=== PATIENT | female | born 2000 | race Two or more races ===

== ENCOUNTER 2023-10-14 15:23 | Emergency (ER) | payer BC, SELFPAY ==
[2023-10-14 15:29] VITALS: BP 130/92; PULSE 100; RESP 18; TEMP 36.8; O2SAT 100
--- NOTE | 2023-10-14 15:35 | ED.SKABFB1 ---
HPI - Skin/Abscess/Foreign Bdy General Chief complaint: Skin/Abscess/Foreign Body Stated complaint: BACK PAIN Time Seen by Provider: 10/14/23 15:35 Source: patient Mode of arrival: walk-in Limitations: no limitations History of Present Illness HPI narrative: this patient's here with a tender area in her right sacral area. She's had an incision and drainage of a pilonidal cyst done at this institution previously. She then followed up with surgeon and it did get better but the surgeon ttold her if it becomes recurrent she would have to have it removed. Just in the last twenty-four hours or so she's noticed an increasing bump and tenderness in this area. She is not doing a sitz bath. She's not on any antibiotics. He denied diabetic. She is otherwise no complaints Related Data Home Medications Medication Instructions Recorded Confirmed No Known Home Medications 10/14/23 10/14/23 Allergies Allergy/AdvReac Type Severity Reaction Status Date / Time No Known Drug Allergies Allergy Verified 10/14/23 15:29 PFSH PFSH Social History Smoking status: Never smoker Exam Narrative Exam Narrative: patient is here with her mother. In the presence of a nurse we did examine her and she has a 1.5 x 0.5 cm fluctuant tender area exactly over the area where previous incision was in the right perianal area. There is no other surrounding tissue texture changes or evidence of expanding infection. I do recommend she has is open at this time. Constitutional Vital Signs, click to edit/add: Last Vital Signs Temp 98.2 F 10/14/23 15:29 Pulse 100 H 10/14/23 15:29 Resp 18 10/14/23 15:29 BP 130/92 H 10/14/23 15:29 Pulse Ox 100 10/14/23 15:29 O2 Del Method Room Air 10/14/23 15:29 Course Vital Signs Vital signs: Vital Signs Temperature 98.2 F 10/14/23 15:29 Pulse Rate 100 H 10/14/23 15:29 Respiratory Rate 18 10/14/23 15:29 Blood Pressure 130/92 H 10/14/23 15:29 Pulse Oximetry 100 10/14/23 15:29 Oxygen Delivery Method Room Air 10/14/23 15:29 Temperature 98.2 F 10/14/23 15:29 Pulse Rate 100 H 10/14/23 15:29 Respiratory Rate 18 10/14/23 15:29 Blood Pressure 130/92 H 10/14/23 15:29 Pulse Oximetry 100 10/14/23 15:29 Oxygen Delivery Method Room Air 10/14/23 15:29 MDM - Skin/Abscess/Foreign Bdy MDM Narrative Medical decision making narrative: after explaining the procedure we used lidocaine one percent with epinephrine to anesthetize the area of tenderness. The stellate incision was made one half centimeter by 1/2 cm. Small amount of purulent material was recovered, hemostats were used to break up other subcutaneous changes tissue. It was not felt to be a deep or expansive abscess at all. Dressings were applied and she'll be started on an antibiotic. We also want her to do frequent sitz baths. She already has a standing appointment to see her surgeon in two weeks to consider definitive removal of this problem Discharge Plan Discharge Chief Complaint: Skin/Abscess/Foreign Body Clinical Impression: Chronic recurrent pilonidal cyst Patient Disposition: Home, Self-Care Time of Disposition Decision: 16:11 Prescriptions / Home Meds: No Action No Known Home Medications Additional Instructions: Keflex/sitz baths/follow-up with her surgeon Stand Alone Forms: Portal Instructions Referrals: Davida Lowe NP [Primary Care Provider] - 1 week
== END 2023-10-14 16:16 | disposition home or self-care (01) ==
PROVIDERS: Emergency Provider Emergency Medicine Emergency Medical Services; PCP Nurse Practitioner
DX: L05.91 Pilonidal cyst without abscess (principal)
CPT/HCPCS: 10080; 99283

== ENCOUNTER 2023-10-26 22:36 | Emergency (ER) | payer BC, SELFPAY ==
[2023-10-26 22:43] VITALS: BP 139/96; PULSE 107; RESP 14; TEMP 36.8; O2SAT 96; BMI 33.7
--- OUTSIDE RECORDS SUMMARY | 2023-10-26 22:44 | XMS_ITS | CCD ---
Author Name Unknown Address [address] [place] [id number] Organization [facility] Care Team Providers Care Distribution Lead Name Role Phone REQUEST, DR NONE LISTED Primary Care Unavailkathleen HAN, DR MARTIN Araujo Admitting Unavailable GUILLE, DR MARTIN Araujo Attending Unavailable GUILLE, DR MARTIN Araujo Consulting Unavailable OSMANY COLON Consulting Unavailable AICHHOLZ, CUSTOMER SERVICE MANAGER TIANNA Admitting Unavailable AICHHOLZ, CUSTOMER SERVICE MANAGER TIANNA Attending Unavailable AICHHOLZ, CUSTOMER SERVICE MANAGER TIANNA Consulting Unavailable AICHHOLZ, CUSTOMER SERVICE MANAGER TIANNA Primary Care Unavailable REQUEST, DR NONE LISTED Primary Care Unavaila FADUMO Del Valle Admitting Unavailable PHOEBELILIA CARLOS Consulting Unavailable FADUMO RUIZ Attending Unavailable PAY ., DR PINEDA Admitting Unavailable REQUEST, NONE LISTED Primary Care Unavaila ble PAY ., DR PINEDA Attending Unavailable PAY ., DR PINEDA Consulting Unavailable No Pcp, No Pcp Primary Care Provider UnavailMARI Youngblood Attending Unavailable NO PCP, NO PCP Primary Care Unavailable MARI MOORE Referring Unavailable NO PCP, NO PCP Primary Care Unavailable MARI MOORE Referring Unavailable NO PCP, NO PCP Primary Care Unavailable Medications Current Medications Medication Drug Class(es) Dates Sig (Normalized) Sig (Original) cephalexin 500 mg oral capsule (1 source) Cephalosporin Antibacterial CEPHalexin (KEFLEX) 500 mg capsule Take 1 capsule (500 mg total) by mouth in the morning and 1 capsule (500 mg total) at noon and 1 capsule (500 mg total) in the evening and 1 capsule (500 mg total) before bedtime. Take 1 tablet 4 times a day by mouth for 5 days. 0 Active Completed/Discontinued Medications Medication Drug Class(es) Dates Sig (Normalized) Sig (Original) sulfamethoxazole 800 mg / trimethoprim 160 mg oral tablet (1 source) Dihydrofolate Reductase Inhibitor Antibacterial, Sulfonamide Antimicrobial Start: 01-25-2023 End: 10-16-2023 take 1 tablet by mouth every twelve hours sulfamethoxazole- trimethoprim (BACTRIM DS) 800-160 mg per tablet Take 1 tablet by mouth every 12 (twelve) hours. Take 1 tablet by mouth every 12 hours for 10 days 0 01/25/2023 10/16/2023 Discontinued (Therapy completed) Problems Active Problems Problem Classification Problem Date Documented Da te Episodic/Chronic Deficiency and other anemia (1 source) Iron deficiency anemia, unspecified; Translations: [IRON DEFICIENCY ANEMIA UNSPECIFIED] Onset: 02-13-2023 Episodic Headache; including migraine (1 source) Headache; including migraine; Translations: [HEADACHE UNSPECIFIED] Onset: 03-06-2022 Menstrual disorders (1 source) Dysmenorrhea; Translations: [Dysmenorrhea, unspecified] Onset: 07-01-2019 07-01-2019 Chronic Nutritional deficiencies (1 source) Vitamin D deficiency; Translations: [Vitamin D deficiency, unspecified] Onset: 07-01-2019 07-01-2019 Chronic Other skin disorders (1 source) Pilonidal disease; Translations: [Other specified disorders of the skin and subcutaneous tissue] 10-16-2023 Episodic Other skin disorders (2 sources) Other specified disorders of the skin and subcutaneous tissue; Translations: [Other specified disorders of the skin and subcutaneous tissue] Onset: 10-16-2023 Episodic Other upper respiratory disease (1 source) Allergic rhinitis; Translations: [Allergic rhinitis, unspecified] Onset: 07-01-2019 07-01-2019 Chronic Skin and subcutaneous tissue infections (6 sources) Pilonidal cyst without abscess; Translations: [Pilonidal cyst with abscess] Onset: 01-25-2023 Episodic Unclassified (3 sources) COUGH, UNSPECIFIED; Translations: [COUGH, UNSPECIFIED] Onset: 03-06-2022 Unclassified (1 source) Post-op Onset: 10-16-2023 Viral infection (1 source) COVID-19; Translations: [COVID-19] Onset: 03-06-2022 Past or Other Problems Problem Classification Problem Date Documented Da te Episodic/Chronic Lymphadenitis (1 source) Localized enlarged lymph nodes; Translations: [LOCALIZED ENLARGED LYMPH NODES] Onset: 06-05-2022 Episodic Mood disorders (1 source) Mood disorders Onset: 03-26-2019 03-26-2019 Other ear and sense organ disorders (3 sources) Otalgia, right ear; Translations: [OTALGIA RIGHT EAR] Onset: 06-04-2022 Episodic Other gastrointestinal disorders (1 source) Diarrhea, unspecified; Translations: [DIARRHEA UNSPECIFIED] Onset: 03-06-2022 Episodic Other skin disorders (1 source) Disorder of scalp; Translations: [Other skin changes] Onset: 07-01-2019 07-01-2019 Episodic Other skin disorders (1 source) Acne vulgaris; Translations: [Acne vulgaris] Onset: 07-01-2019 07-01-2019 Episodic Other skin disorders (1 source) Loss of hair; Translations: [Nonscarring hair loss, unspecified] Onset: 07-01-2019 07-01-2019 Episodic Other upper respiratory infections (1 source) Acute pharyngitis, unspecified; Translations: [ACUTE PHARYNGITIS UNSPECIFIED] Onset: 03-06-2022 Episodic Unclassified (1 source) COUGH, UNSPECIFIED; Translations: [COUGH, UNSPECIFIED] Onset: 03-02-2022 Results Test Name Value Interpretation Reference Range Facility COMPLETE BLOOD COUNTon 10-21 Erythrocyte distribution width (RBC) [Ratio] 12.9 % Normal 11.5-15.0 [facility] Comment on above: Performed By: #### C BC #### [facility] ([id number]) [address] [place] [address] Hematocrit (Bld) [Volume fraction] 41.9 % Normal 35-47 [facility] Comment on above: Performed By: #### C BC #### [facility] ([id number]) [address], [address] [place] [address] Hemoglobin (Bld) [Mass/Vol] 14.2 g/dL Normal 11.7-15.5 [facility] Comment on above: Performed By: #### C BC #### [facility] ([id number]) [address], [address] [place] [address] MCH (RBC) [Entitic mass] 30.5 pg Normal 27-34 [facility] Comment on above: Performed By: #### C BC #### [facility] ([id number]) [address], [address] [place] [address] MCHC (RBC) [Mass/Vol] 33.9 g/dL Normal 32-36 [facility] Comment on above: Performed By: #### C BC #### [facility] ([id number]) [address], [address] [place] [address] MCV (RBC) [Entitic vol] 90 fL Normal 80-100 [facility] Comment on above: Performed By: #### C BC #### [facility] ([id number]) [address], [address] [place] [address] Platelet mean volume (Bld) [Entitic vol] 7.6 fL Normal 7-12 [facility] Comment on above: Performed By: #### C BC #### [facility] ([id number]) [address], [address] [place] [address] Platelets (Bld) [#/Vol] 383 10*3/uL Normal 150-450 [facility] Comment on above: Performed By: #### C BC #### [facility] ([id number]) [address], [address] [place] [address] RBC COUNT 4.66 X10E12/L Normal 3.80-5.20 [facility] Comment on above: Performed By: #### C BC #### [facility] ([id number]) [address] [place] [address] WBC (Bld) [#/Vol] 7.9 10*3/uL Normal 4.0-11.0 [facility] Comment on above: Performed By: #### C BC #### [facility] ([id number]) [address], [address] [place] [address] CBC AUTO DIFFon 02-06-2023 BASO # 0.0 103/ul Normal 0.0-0.1 [facility] Comment on above: Performed By: #### C BC #### [facility] [address] [place] [address] Dr. Sin Maciel Basophils/100 WBC (Bld) 0.7 % Normal 0.2-2.0 [facility] Comment on above: Performed By: #### C BC #### [facility] [address] [place] [address] Dr. Sin Maciel EO # 0.2 103/ul Normal 0.0-0.7 [facility] Comment on above: Performed By: #### C BC #### [facility] [address] [place] [address] Dr. Sin Maciel Eosinophils/100 WBC (Bld) 2.7 % Normal 0.9-7.0 [facility] Comment on above: Performed By: #### C BC #### [facility] [address] [place] [address] Dr. Sin Maciel Erythrocyte distribution width (RBC) [Ratio] 12.3 % Normal 11.0-15.0 [facility] Comment on above: Performed By: #### C BC #### [facility] [address] [place] [address] Dr. Sin Maciel Hematocrit (Bld) [Volume fraction] 42.2 % Normal 36.0-48.0 [facility] Comment on above: Performed By: #### C BC #### [facility] [address] [place] [address] Dr. Sin Maciel Hemoglobin (Bld) [Mass/Vol] 14.2 g/dL Normal 12.0-16.0 [facility] Comment on above: Performed By: #### C BC #### [facility] [address] [place] [address] Dr. Sin Maciel IG # 0.01 10e3/ul Normal 0.00-0.03 [facility] Comment on above: Performed By: #### C BC #### [facility] [address] [place] [address] Dr. Sin Maciel IG % 0.2 % Normal 0.0-0.5 [facility] Comment on above: Performed By: #### C BC #### [facility] [address] [place] [address] Dr. Sin Maciel LYMPH # 1.9 103/ul Normal 1.2-3.8 [facility] Comment on above: Performed By: #### C BC #### [facility] [address] [place] [address] Dr. Sin Maciel Lymphocytes/100 WBC (Bld) 31.7 % Normal 20.5-60.0 [facility] Comment on above: Performed By: #### C BC #### [facility] [address] [place] [address] Dr. Sin Maciel MANUAL DIFF REQ NO Normal [facility] Comment on above: Performed By: #### C BC #### [facility] [address] [place] [address] Dr. Sin Maciel MCH (RBC) [Entitic mass] 30.1 pg Normal 26.7-34.0 [facility] Comment on above: Performed By: #### C BC #### [facility] [address] [place] [address] Dr. Sin Maciel MCHC (RBC) [Mass/Vol] 33.6 g/dL Normal 29.9-35.2 [facility] Comment on above: Performed By: #### C BC #### [facility] [address] [place] [address] Dr. Sin Maciel MCV (RBC) [Entitic vol] 89.4 fL Normal 81.0-99.0 [facility] Comment on above: Performed By: #### C BC #### [facility] [address] [place] [address] Dr. Sin Maciel MONO # 0.4 103/ul Normal 0.3-0.8 [facility] Comment on above: Performed By: #### C BC #### [facility] [address] [place] [address] Dr. Sin Maciel Monocytes/100 WBC (Bld) 6.8 % Normal 1.7-12.0 [facility] Comment on above: Performed By: #### C BC #### [facility] [address] [address] [address] Sin Maciel NEUT # 3.4 103/ul Normal 1.4-6.5 [facility] Comment on above: Performed By: #### C BC #### [facility] [address] [address] [address] Sin Maciel Neutrophils/100 WBC (Bld) 57.9 % Normal 43.0-75.0 [facility] Comment on above: Performed By: #### C BC #### [facility] [address] [place] [address] Dr. Sin Maciel Platelet mean volume (Bld) [Entitic vol] 8.7 fL Critically low 9.5-13.5 [facility] Comment on above: Performed By: #### C BC #### [facility] [address] [place] [address] Dr. Sin Maciel PLT 301 103/ul Normal 150-450 [facility] Comment on above: Performed By: #### C BC #### [facility] [address] [place] [address] Dr. Sin Maciel RBC 4.72 106/ul Normal 4.20-5.40 [facility] Comment on above: Performed By: #### C BC #### [facility] [address] [place] [address] Dr. Sin Maciel WBC 5.9 103/ul Normal 4.0-11.0 [facility] Comment on above: Performed By: #### C BC #### [facility] [address] [place] [address] Dr. Sin Maciel FERRITINon 02-06-2023 Ferritin [Mass/Vol] 48.0 ng/mL Normal 6.2-137.0 [facility] Comment on above: Performed By: #### S SCRN, GRASTCX #### [facility] [address] [address] [address] Sin Maciel IRONon 02-06-2023 Iron [Mass/Vol] 85.0 ug/dL Normal 50.0-170.0 [facility] Comment on above: Performed By: #### F ERR, IRON #### [facility] [address] [address] [address] Sin Maciel LIPID PROFILEon 02-06-2023 CHOL-HDL RATIO NORM SEE BELOW Normal [facility] Comment on above: Result Comment: 3.3 - 4.4 LOW RISK 4.4 - 7.1 AVERAGE RISK 7.1 - 11.0 MODERATE RISK >11.0 HIGH RISK Performed By: #### L IPID, TSH, CMP #### [facility] [address] [address] [address] Sin Maciel Cholesterol [Mass/Vol] 169 mg/dL Normal <=200 [facility] Comment on above: Performed By: #### L IPID, TSH, CMP #### [facility] [address] [address] [address] Sin Maciel Cholesterol in HDL [Mass/Vol] 52 mg/dL Normal 40-60 [facility] Comment on above: Performed By: #### L IPID, TSH, CMP #### [facility] [address] [address] [address] Sin Maciel Cholesterol in LDL [Mass/Vol] 96.4 mg/dL Normal [facility] Comment on above: Performed By: #### L IPID, TSH, CMP #### [facility] [address] [address] [address] Sin Maciel Cholesterol.total/C holesterol in HDL [Mass ratio] 3.3 {ratio} Normal [facility] Comment on above: Performed By: #### L IPID, TSH, CMP #### [facility] [address] [address] [address] Sin Maciel HDL NORMAL > or = 60 mg/dl - LOW CARDIOVASCULAR RISK <40 mg/dl - HIGH CARDIOVASCULAR RISK Normal [facility] Comment on above: Performed By: #### L IPID, TSH, CMP #### [facility] [address] [address] [address] Sin Maciel LDL CALC NORMAL SEE BELOW Normal [facility] Comment on above: Result Comment: <100 mg/dl OPTIMAL 100 - 129 mg/dl NEAR OR ABOVE OPTIMAL 130 - 159 mg/dl BORDERLINE HIGH 160 - 189 mg/dl HIGH >190 mg/dl VERY HIGH Performed By: #### L IPID, TSH, CMP #### [facility] [address] [address] [address] Sin Maciel Triglyceride [Mass/Vol] 103 mg/dL Normal <=150 [facility] Comment on above: Performed By: #### L IPID, TSH, CMP #### [facility] [address] [address] [address] Sin Maciel VLDL CALC 20.6 mg/dL Normal [facility] Comment on above: Performed By: #### L IPID, TSH, CMP #### [facility] [address] [address] [address] Sin Maciel PROF 14(COMP METB)on 023 Albumin [Mass/Vol] 3.7 g/dL Normal 3.4-5.0 [facility] Comment on above: Performed By: #### L IPID, TSH, CMP #### [facility] [address] [address] [address] Sin Maciel Albumin/Globulin [Mass ratio] 0.8 {ratio} Normal [facility] Comment on above: Performed By: #### L IPID, TSH, CMP #### [facility] [address] [address] [address] Sin Maciel ALP [Catalytic activity/Vol] 162 U/L Critically high 46-116 [facility] Comment on above: Performed By: #### L IPID, TSH, CMP #### [facility] [address] [address] [address] Sin Maciel ALT [Catalytic activity/Vol] 35 U/L Normal 14-59 [facility] Comment on above: Performed By: #### L IPID, TSH, CMP #### [facility] [address] [address] [address] Sin Maciel Anion gap [Moles/Vol] 11.8 mmol/L Normal [facility] Comment on above: Performed By: #### L IPID, TSH, CMP #### [facility] [address] [place] [address] Dr. Sin Maciel AST [Catalytic activity/Vol] 19 U/L Normal 15-37 [facility] Comment on above: Performed By: #### L IPID, TSH, CMP #### [facility] [address] [place] [address] Dr. Sin Maciel Bilirubin [Mass/Vol] 0.4 mg/dL Normal 0.2-1.0 [facility] Comment on above: Performed By: #### L IPID, TSH, CMP #### [facility] [address] [place] [address] Dr. Sin Maciel Calcium [Mass/Vol] 9.1 mg/dL Normal 8.5-10.1 [facility] Comment on above: Performed By: #### L IPID, TSH, CMP #### [facility] [address] [place] [address] Dr. Sin Maciel Chloride [Moles/Vol] 102 mmol/L Normal 98-107 [facility] Comment on above: Performed By: #### L IPID, TSH, CMP #### [facility] [address] [place] [address] Dr. Sin Maciel CO2 [Moles/Vol] 29.2 mmol/L Normal 21.0-32.0 [facility] Comment on above: Performed By: #### L IPID, TSH, CMP #### [facility] [address] [place] [address] Dr. Sin Maciel Creatinine [Mass/Vol] 0.86 mg/dL Normal 0.55-1.02 [facility] Comment on above: Performed By: #### L IPID, TSH, CMP #### [facility] [address] [place] [address] Dr. Sin Maciel EGFR-AF BANGLADESHI >60 Normal >=60 [facility] Comment on above: Performed By: #### L IPID, TSH, CMP #### [facility] [address] [place] [address] Dr. Sin Maciel EGFR-NON AF BANGLADESHI >60 Normal >=60 [facility] Comment on above: Performed By: #### L IPID, TSH, CMP #### [facility] [address] [address] [address] Sin Maciel Globulin (S) [Mass/Vol] 4.5 g/dL Normal [facility] Comment on above: Performed By: #### L IPID, TSH, CMP #### [facility] [address] [place] [address] Dr. Sin Maciel Glucose [Mass/Vol] 88 mg/dL Normal 74-106 [facility] Comment on above: Performed By: #### L IPID, TSH, CMP #### [facility] [address] [place] [address] Dr. Sin Maciel Potassium [Moles/Vol] 4.0 mmol/L Normal 3.5-5.1 [facility] Comment on above: Performed By: #### L IPID, TSH, CMP #### [facility] [address] [place] [address] Dr. Sin Maciel Protein [Mass/Vol] 8.2 g/dL Normal 6.4-8.2 [facility] Comment on above: Performed By: #### L IPID, TSH, CMP #### [facility] [address] [place] [address] Dr. Sin Maciel Sodium [Moles/Vol] 139 mmol/L Normal 136-145 [facility] Comment on above: Performed By: #### L IPID, TSH, CMP #### [facility] [address] [place] [address] Dr. Sin Maciel Urea nitrogen [Mass/Vol] 11.0 mg/dL Normal 7.0-18.0 [facility] Comment on above: Performed By: #### L IPID, TSH, CMP #### [facility] [address] [place] [address] Dr. Sin Maciel Urea nitrogen/Creatinine [Mass ratio] 12.8 mg/mg Normal [facility] Comment on above: Performed By: #### L IPID, TSH, CMP #### [facility] [address] [address] [address] Sin Maciel TSHon 02-06-2023 TSH 1.649 uIU/mL Normal 0.358-3.740 [facility] Comment on above: Performed By: #### L IPID, TSH, CMP #### [facility] [address] [address] [address] Sin Maciel CULTURE WOUNDon 01-25-2023 CULTURE WOUND Isolate 1 Peptoniphilus lacrimalis Light growth of Normal [facility] Comment on above: Result Comment: EVID ENCE BASED PRACTICE BY [facility] HAS DEMONSTRATED THAT PEPTONIPHILUS SPECIES ARE ROUTINELY SUSCEPTIBLE TO PIPERACILLIN-TAZOBACTAM, CEFOXITIN, ERTAPENEM, IMIPENEM ,METRONIDAZOLE AND VARIABLY RESISTANT TO CLINDAMYCIN. Performed By: #### W OUNDCX #### [facility] [address] [address] [address] Sin Maciel XR CHEST 1 Von 03-03-2022 XR CHEST 1 V EXAM: XR CHEST 1 V HISTORY: COUGH COMPARISON: None. TECHNIQUE: Single frontal view chest x-ray FINDINGS: Mild bilateral lower infrahilar lung streaky opacities. No lobar consolidation, large pleural effusions, pneumothorax, or acute bony abnormality. Cardiac size unremarkable. IMPRESSION: Mild bilateral lower infrahilar lung streaky opacities reflect atelectasis or sequela of small reactive airway or mild lung inflammation. Correlate clinically. Electronically authenticated by: OSMANY COLON Date: 2022-03-02 22:50 Normal [facility] Covid-19 PCR (CVDTBH)on 02-05 SARS-CoV-2 (COVID-19) RNA RAFIQ+probe Ql (Unsp spec) Detected Critically abnormal NOT DETECTED [facility] Comment on above: Result Comment: This test is not yet approved or cleared by the [place] FDA. When there are no FDA-approved or cleared tests available, and other criteria are met, FDA can make tests available under an emergency access mechanism called an Emergency Use Authorization (EUA). The EUA for this test is supported by the Director Check of Health and Human Service's declaration that circumstances exist to justify the emergency use of in vitro diagnostics for the detection and/or diagnosis of the virus that causes COVID-19. This EUA will remain in effect for the duration of the COVID-19 declaration justifying emergency of IVDs, unless it is terminated or revoked by the FDA (after which the test may no longer be used). Performed By: #### C VDTBH #### [facility] [address] [place] [address] Dr. Sin Maciel GROUP A STREP CULTUREon 02-05 S. pyogenes Ag Ql (Unsp spec) Culture Observations: NEGATIVE FOR GROUP A STREPTOCOCCUS. Normal [facility] Comment on above: Performed By: #### S SCRN, GRASTCX #### [facility] [address] [place] [address] Dr. Sin Maciel INFLUENZA A AND B AGon 03-02 INFLUANEGH SEE BELOW Normal [facility] Comment on above: Result Comment: Nega tive for Flu A protein angiten. Infection due to Flu A cannot be ruled out. Flu A angiten in the sample may be below the detection limit of the test. Performed By: #### S SCRN, GRASTCX #### [facility] [address] [place] [address] Dr. Sin Maciel INFLUBNEG SEE BELOW Normal [facility] Comment on above: Result Comment: Nega tive for Flu B protein antigen. Infection due to Flu B cannot be ruled out. Flu B antigen in the sample may be below the detection limit of the test. Performed By: #### S SCRN, GRASTCX #### [facility] [address] [place] [address] Dr. Sin Maciel INFLUENZA A AG Negative Normal NEGATIVE SEE COMMENT [facility] Comment on above: Performed By: #### S SCRN, GRASTCX #### [facility] [address] [place] [address] Dr. Sin Maciel INFLUENZA B AG Negative Normal NEGATIVE SEE COMMENT [facility] Comment on above: Performed By: #### S SCRN, GRASTCX #### [facility] [address] [place] [address] Dr. Sin Maciel INTERNAL CONTROLS Within Normal Limits Normal Within Normal Limits [facility] Comment on above: Performed By: #### S SCRN, GRASTCX #### [facility] [address] [address] [address] Sin Maciel STREPT SCREENon 03-02-2022 STREP SCREEN A Negative Normal NEGATIVE [facility] Comment on above: Performed By: #### S SCRN, GRASTCX #### [facility] [address] [address] [address] Sin Maciel Consenton 04-05-2021 Consent [id number]:127 Normal [facility] Registrationon 04-05-2021 Registration [id number]:127 Normal [facility] Vital Signs Date Time Vital Sign Value Performing Clinician Faci lity 10-16-2023 10:22-0500 Body height 160 cm Mari Moore DO Work Phone: [facility] [employer] [facility] 10-16-2023 10:22-0500 Body mass index (BMI) [Ratio] 33.9 kg/m2 Mari Moore DO Work Phone: [facility] [employer] 10-16-2023 10:22-0500 Body weight 86.82 kg Mari Moore DO Work Phone: [facility] [employer] [facility] 10-16-2023 10:22-0500 Diastolic blood pressure 88 mm[Hg] [facility] 10-16-2023 10:22-0500 Heart rate 98 /min [facility] 10-16-2023 10:22-0500 Systolic blood pressure 123 mm[Hg] Mari Moore [facility] Encounters Encounter Date Encounter Type Care Provider Facility Start: 10-21-2023 End: 10-22-2023 ambulatory VERA Nasir MIGUEL [facility] Start: 10-16-2023 End: 10-16-2023 [facility] Start: 10-16-2023 End: 10-16-2023 Office outpatient visit 15 minutes Mari Best Kalyn DO Work Phone: [facility] Comment on above: Pilonidal cyst with abscess (Primary Dx); Pilonidal disease Start: 02-13-2023 Encounter for genera l adult medical examination without abnormal findings [facility] Start: 02-06-2023 End: 02-07-2023 ambulatory CUSTOMER SERVICE MANAGER [facility] Facility:H1 Start: 02-06-2023 End: 02-07-2023 Encounter for general adult medical examination without abnormal findings [facility] Facility:H1 Start: 01-25-2023 End: 01-25-[address] MIRIAM CASE . Facility:H1 Start: 06-04-2022 End: 06-04-2022 ambulatory NONE LISTED REQUEST Facility:H1 Start: 03-02-2022 End: 03-02-2022 ambulatory NONE LISTED REQUEST Facility:H1 Plan of Treatment Date Care Activity Detail Author Start: 10-16-2024 Adult BMI Screening Adult BMI Screen ing [facility] Start: 10-16-2024 Tobacco Screening Tobacco Screening [facility] Start: 01-29-2024 DTaP,Tdap and Td Vaccines (7 - Td or Tdap) DTaP,Tdap and Td Vaccines (7 - Td or Tdap) [facility] Start: 11-06-2023 End: 11-06-2023 Patient encounter procedure 11/06/2023 3:00 PM EST Office Visit [facility] [address] [place] [address] [place] [address] Tonia Pacheco APRN-CUSTOMER SERVICE MANAGER [address], [place] [address] [facility] Start: 10-29-2023 End: 10-29-2023 Admission to same day surgery center 10/29/2023 10:45 AM EST - 10/29/2023 11:45 AM EST Surgery [facility] - Surgery [address] [place] [address] Mari Moore, DO [address] [place] [address] EXCISION CYST PILONIDAL [facility] Comment on above: EXCISION CYST PILONI VARSHA Start: 10-29-2023 End: 10-29-2023 EXCISION CYST PILONIDAL EXCISION CYST PILONIDAL pilonidal cyst 10/29/2023 10:45 AM EST [facility] Start: 10-29-2023 Subsequent hospital visit by physician 10/29/2023 10:45 AM EST Hospital Encounter [facility] Surgery [address] [place] [address] Mari Moore, DO [address] [place] [address] [facility] Start: 10-21-2023 End: 10-21-2023 Patient encounter procedure 10/21/2023 8:15 AM EST Procedure visit [facility] - Pre Admit [address] [place] [address] [facility] - Pre Admit Start: 06-07-2023 COVID-19 Vaccine ( season) COVID-19 Vaccine ( season) [facility] Start: 06-07-2023 Influenza vaccination Influenza Vacc ine [facility] Start: 2023 Screening for malign ant neoplasm of cervix Pap Smear [facility] Start: 2020 Adult BMI Follow Up Plan Adult BMI Follow Up Plan [facility] Start: 2014 Depression Screening Depression Scre ening [facility] Start: 2002 Screening for Chlamy severiano trachomatis Chlamydia Screening [facility] End: 10-15-2024 CBC panel - Blood by Automated count CBC without diff Lab Routine Pilonidal disease 1 Occurrences starting 10/16/2023 until 10/15/2024 [facility] Work Phone: Comment on above: 1 Occurrences starti ng 10/16/2023 until 10/15/2024 End: 10-15-2024 Unlisted Procedure / Surgery Unlisted Procedure / Surgery Procedures Routine Pilonidal disease 1 Occurrences starting 10/16/2023 until 10/15/2024 [facility] Comment on above: 1 Occurrences starti ng 10/16/2023 until 10/15/2024 Immunizations Immunization Date Immunization Notes Care Provider Fa meghann 08-21-2018 meningococcal B vacc ine, fully recombinant Mari Moore DO Work Phone: [facility] 07-09-2018 influenza, injectabl e, quadrivalent, preservative free Mari Moore DO Work Phone: [facility] 07-09-2018 meningococcal B vacc ine, fully recombinant Mari Moore DO Work Phone: [facility] 07-09-2018 meningococcal oligosaccharide (groups A, C, Y and W-135) diphtheria toxoid conjugate vaccine (MCV4O) Mari Cookmiguel DO Work Phone: [facility] 07-09-2018 influenza virus vacc ine, unspecified formulation Mari Moore DO Work Phone: [facility] 10-02-2017 influenza, injectabl e, quadrivalent, preservative free Mari Moore DO Work Phone: [facility] Payers Date Payer Category Payer Unknown [employer] PPO/TRUST [id number] 2023-Present [phone] [address] [place] [address] [id number] 2023 Unknown [id number] 2022 Medicaid [id number] 2002 Unknown [id number] 2002 Unknown [id number] 2002 Unknown [id number] 2002 Unknown [id number] 2002 Unknown [id number] 2002 Unknown [id number] 2002 Unknown [id number] 1959 Unknown [id number] 1959 Unknown [id number] Social History Date Type Detail Facility Start: 01-30-2023 Tobacco smoking stat [facility] Never smoked tobacco [facility] Start: 01-30-2023 Tobacco use and exposure Smokeless tobacco non-user [facility] Start: 10-16-2023 Alcohol intake 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 [facility] [address] [facility] [address] Progress NOTE Albertina Larios 23 y.o. CHIEF COMPLAINT Chief Complaint Patient presents with Post-op Post op incision and drainage of recurrent pilonidal cyst performed 10/14/23 at [facility] 23-year-old female presents with her mother with complaints of recurrent pilonidal abscess for which she went to the [facility] 2 days ago and they had to incise and drain it. She was having pain and discomfort and was placed on Keflex daily. Denies any current fevers or chills. She is feeling better. She is soaking in a tub. She has a full-time student. MEDICATION Current Outpatient Medications: CEPHalexin (KEFLEX) 500 mg capsule, Take 1 capsule (500 mg total) by mouth in the morning and 1 capsule (500 mg total) at noon and 1 capsule (500 mg total) in the evening and 1 capsule (500 mg total) before bedtime. Take 1 tablet 4 times a day by mouth for 5 days., Disp: , Rfl: ALLERGY No Known Allergies MEDICAL HISTORY Past Medical History: Diagnosis Date Eczema Pilonidal cyst [facility] 01/25/23 SURGICAL HISTORY Past Surgical History: Procedure Laterality Date INCISION AND DRAINAGE PERIRECTAL ABSCESS I&D of pilonidal cyst performed 10/14/23 at [facility] SOCIAL HISTORY Social History Socioeconomic History Marital status: Single Spouse name: Not on file Number of children: Not on file Years of education: Not on file Highest education level: Not on file Occupational History Not on file Tobacco Use Smoking status: Never Smokeless tobacco: Never Vaping Use Vaping Use: Never used Substance and Sexual Activity Alcohol use: No Drug use: No Sexual activity: Yes control/protection: None Other Topics Concern Not on file Social History Narrative Not on file Social Determinants of Health Financial Resource Strain: Not on file Food Insecurity: Unknown (10/16/2023) Hunger Screening Food Insecurity - Worry: Never True Food Insecurity - Inability: Not on file Transportation Needs: Not on file Physical Activity: Not on file Stress: Not on file Social Connections: Not on file Interpersonal Safety: Not on file FAMILY HISTORY Family History Problem Relation Age of Onset No Known Problems Mother Diabetes Father REVIEW OF SYSTEMS: Constitutional: Denies fevers, denies recent illnesses. Rest review of systems negative except as above. PHYSICAL EXAM Constitutional: She is oriented to person, place, and time. Vital signs are normal. She appears well-developed and well-nourished. HEENT: Head: Normocephalic and atraumatic. Eyes: Conjunctivae, EOM and lids are normal. Neck: Trachea normal. Neck supple. No thyroid mass present. Cardiovascular: Normal rate and regular rhythm. Pulmonary/Chest: Effort normal and breath sounds normal. Presacral area: To the right of the midline she has a palpable cyst approximately 1.5-2 cm and just above that as a small parth where she had incision and drainage few mm in size with no drainage noted. Neurological: She is alert and oriented to person, place, and time. Skin: Skin is warm, dry and intact. Psychiatric: She has a normal mood and affect. Her speech is normal and behavior is normal. Cognition and memory are normal. IMPRESSION Pilonidal cyst presacral area ASSESSMENT & PLAN Patient offered conservative treatment versus surgery and she wishes to have it excised. Risks benefits alternatives to surgery may include infection bleeding recurrence or pain. She understands she may have pain or discomfort for a few weeks weeks afterwards especially while going to class and should take at least 1-2 days off. She wishes to proceed. Evaluation included: Preparing to see the patient (e.g., review of tests) Obtaining and/or reviewing separately obtained history Performing a medically appropriate examination and/or evaluation Counseling and educating the patient/family/caregiver Referring and communicating with other health clinical care coordinator No primary diagnosis found. Mari Moore DO This note was created with the assistance of a speech recognition program. While intending to generate a timely document that accurately reflects the content of the visit, no guarantee can be provided that every grammatical or spelling mistake has been or will be identified or corrected. Thank you for your understanding. [facility] Note Date & Type Note Facility Evaluation note Diagnosis Pilonidal cyst with abscess- Primary Pilonidal disease documented in this encounter [email or web address] System Instructions Note Date & Type Note Facility Instructions Not on filedocumented in this en counter [facility] Summary Purpose Family History No Family History Records FoundNo Family History Records FoundNo Family History Records FoundNo Family History Records Found Advance Directives No Advanced Directives Records FoundNo Advanced Directives Records FoundNo Advanced Directives Records FoundNo Advanced Directives Records Found Reason for Referral Specialty Diagnoses / Procedures Referred By Gonzales cid Referred To Contact Diagnoses Pilonidal disease Procedures Unlisted Procedure / Surgery Kalyn Mari Nasir, [address] [place] [address] Referral ID Status Reason Start Date Expiration Date V isits Requested Visits Authorized [id number] Pending Review 10/16/2023 10/15/2024 1 1 Additional Source Comments INFORMATION SOURCE (unrecogn ized section and content) DATE CREATED AUTHOR 04/07/2021 Richardson Bradley [facility] DATE CREATED AUTHOR AUTHOR'S ORGANIZ ATION 02/14/2023 [facility] DATE CREATED AUTHOR AUTHOR'S ORGANIZ ATION 10/20/2023 [facility] DATE CREATED AUTHOR AUTHOR'S ORGANIZ ATION 10/22/2023 [facility] Reason for Visit (unrecogniz ed section and content) Reason Comments Post-op Post op incision and drainage of recurrent pilonidal cyst performed 10/14/23 at [facility] Care Teams (unrecognized sec tion and content) Distribution Lead Relationship Specialty Start Date End Date No Pcp, [place] [address] PCP - General Family Medicine 01/30/23 FOR RECORDS PERTAINING TO PATIENTS WHO ARE OR HAVE BEEN ENROLLED IN A CHEMICAL DEPENDENCY/SUBSTANCEABUSE PROGRAM, SOME INFORMATION MAY BE OMITTED. This clinical summary was aggregated from multiple sources. Caution should be exercised in using it in the provision of clinical care. This summary normalizes information from multiple sources, and as a consequence, information in this document may materially change the coding, format and clinical context of patient data. In addition, data may be omitted in some cases. CLINICAL DECISIONS SHOULD BE BASED ON THE PRIMARY CLINICAL RECORDS. [facility] [employer] [facility]. provides no warranty or guarantee of the accuracy or completeness of information in this document.
--- NOTE | 2023-10-26 22:55 | PC.NURSE ---
Pt reports known pilonidal cyst above rectum, scheduled to have it removed surgically by Kalyn on 10/29. Pt fell backwards onto buttocks tonight and felt pop and fluid continued to drain from cyst. Denies hitting head. Painful for pt to sit down on buttocks.
--- NOTE | 2023-10-26 23:07 | ED.FALL1 ---
HPI - Fall General Chief Complaint: Fall Stated Complaint: cyst on tailbone, fluid after fall Time Seen by Provider: 10/26/23 22:53 Source: patient Mode of arrival: walk-in Limitations: no limitations History of Present Illness HPI Narrative: patient was seen last week for pilonidal cyst that required excision. Seen in follow up by Dr Mccain and is scheduled for surgery. Today she fell onto her buttocks and now has a cyst that is open and draining. She also has mild nausea. Denies other injury. Concerned about the cyst draining because of upcoming surgery next week Related Data Home Medications Medication Instructions Recorded Confirmed No Known Home Medications 10/14/23 10/26/23 Allergies Allergy/AdvReac Type Severity Reaction Status Date / Time No Known Drug Allergies Allergy Verified 10/26/23 22:48 Review of Systems ROS Status of ROS 10 or more systems reviewed and unremarkable except as noted in history and below [facility] Social History Smoking status: Never smoker Exam Constitutional Vital Signs, click to edit/add: Last Vital Signs Temp 98.3 F 10/26/23 22:43 Pulse 107 H 10/26/23 22:43 Resp 14 10/26/23 22:43 BP 139/96 H 10/26/23 22:43 Pulse Ox 96 10/26/23 22:43 O2 Del Method Room Air 10/26/23 22:43 Common normals: no apparent distress, average body habitus, oriented x3, no limitations, healthy appearing, alert and well nourished Eye Common normals: PERRL and EOMs intact bilaterally Respiratory Common normals: normal respiratory effort and no retractions Cardio Common normals: regular rate, regular rhythm, S1 normal heart sound and S2 normal heart sound GI Common normals: Normal to inspection, nondistended, normoactive bowel sounds present, soft to palpation and non-tender Other: open pilonidal cyst with scant drainage. no surrounding swelling Extremity Common normals: normal to inspection and full ROM Neuro Common normals: oriented x3, CN's II-XII intact bilaterally, moves all extremities and no focal motor deficits Psych Appearance: grossly normal Course Vital Signs Vital signs: Vital Signs Temperature 98.3 F 10/26/23 22:43 Pulse Rate 107 H 10/26/23 22:43 Respiratory Rate 14 10/26/23 22:43 Blood Pressure 139/96 H 10/26/23 22:43 Pulse Oximetry 96 10/26/23 22:43 Oxygen Delivery Method Room Air 10/26/23 22:43 Temperature 98.3 F 10/26/23 22:43 Pulse Rate 107 H 10/26/23 22:43 Respiratory Rate 14 10/26/23 22:43 Blood Pressure 139/96 H 10/26/23 22:43 Pulse Oximetry 96 10/26/23 22:43 Oxygen Delivery Method Room Air 10/26/23 22:43 MDM - Fall MDM Narrative Medical decision making narrative: presents with draining pilonidal cyst. Fell onto her buttocks and the cyst open and drained. Has upcoming surgery to treat her recurring cyst. Site without any surrounding erythema or swelling. Patient given dose of Augmentin and discharged home with a prescription for the same. She is to follow up with her surgeon next week as scheduled Discharge Plan Discharge Chief Complaint: Fall Clinical Impression: Chronic recurrent pilonidal cyst Patient Disposition: Home, Self-Care Prescriptions / Home Meds: No Action No Known Home Medications Instructions: Pilonidal Cyst (ED) Stand Alone Forms: Portal Instructions Referrals: Davida Lowe NP [Primary Care Provider] - 1 week
[2023-10-26] MEDS: AMOXICILLIN/POTASSIUM CLAV 1 TAB TABLET PO (23:12)
[2023-10-26] MEDS: ONDANSETRON 4 MG RAPDIS TABLET SL (23:12)
[2023-10-26 23:14] VITALS: PULSE 88; RESP 16; O2SAT 98
== END 2023-10-26 23:15 | disposition home or self-care (01) ==
PROVIDERS: Emergency Provider Internal Medicine; PCP Nurse Practitioner
DX: L05.91 Pilonidal cyst without abscess (principal)
CPT/HCPCS: 99283; Q0162